=== PATIENT | female | born 1975 | race Caucasian/White ===

== ENCOUNTER 2019-07-25 15:36 | Emergency (ER) | payer SELFPAY ==
[~2019-07-25] VITALS: Ht 160 cm; Wt 83.9 kg
[2019-07-25 15:36] VITALS: BP 191/133
[~2019-07-25 15:36] MED LIST: BENA20TA10; DULO60EC; HYDR200T5
--- NOTE | 2019-07-25 15:42 | NUR ---
pt biba c/o right side flank painx yesterday. pt states she took motrin this morning and used a heat pad it allevated it a little but pain came back worse. no obvious injury noted. denies any hematuria or dyuria. denies any fever,n,v,d. denies any truama or injuy or falls. vss. rates pain 10/10. pt states movement makes it worse. received report from [facility] right of way worker. brigettea. pmh: htn, lupus.
--- NOTE | 2019-07-25 15:42 | NUR ---
PT PLACED IN BED 4 BY EMS.
[2019-07-25] MEDS ORDERED: KETOROLAC 30 MG/ML VIAL IVP ONE (16:10)
[2019-07-25 16:35] LABS: BASOPHILS # (AUTO) 0.1 K/uL (0.00-0.22); BASOPHILS % (AUTO) 0.6 % (0.0-2.0); EOSINOPHILS # (AUTO) 0.1 K/uL (0-0.4); HEMATOCRIT 40.3 % (36-48); HEMOGLOBIN 13.5 g/dL (12.0-16.0); LYMPHOCYTES # (AUTO) 0.5 K/uL (2.5-16.5); MEAN CORPUSCULAR HEMOGLOBIN 31 pg (27-31); MEAN CORPUSCULAR HGB CONC 34 g/dL (33-37); MEAN CORPUSCULAR VOLUME 91.8 fL (80-94); MONOCYTES # (AUTO) 0.6 K/uL (0.8-1.0); NEUTROPHILS # (AUTO) 7.7 K/uL (1.8-7.7); NEUTROPHILS % (AUTO) 85.4 % (42.2-75.2); PLATELET COUNT (AUTO) 267 K/uL (140-450); RED CELL DISTRIBUTION WIDTH 12.9 % (11.6-13.7)
[2019-07-25] MEDS ORDERED: MORPHINE SULFATE 4 MG/ML SYR IVP ONE (16:55)
[2019-07-25] MEDS ORDERED: ONDANSETRON 4 MG/2 ML VIAL IVP ONE (16:55)
[2019-07-25 17:38] LABS: ANION GAP 13.8 (8-16); POTASSIUM 3.8 mmol/L (3.5-5.1)
[2019-07-25 17:39] LABS: ALBUMIN 3.3 g/dL (3.4-5.0); CREATININE 0.8 mg/dL (0.6-1.3); TOTAL BILIRUBIN 0.3 mg/dL (0.0-1.0)
[2019-07-25 18:23] LABS: APPEARANCE,URINE CLEAR (CLEAR); BILIRUBIN,URINE NEGATIVE (NEGATIVE); BLOOD, URINE NEGATIVE (NEGATIVE); COLOR,URINE ORANGE (YELLOW); LEUKOCYTE ESTERASE ,URINE NEGATIVE (NEGATIVE); NITRITE, URINE NEGATIVE (NEGATIVE); PH,URINE 5.5 (5.0-9.0); UGLUCOSE NEGATIVE (NEGATIVE)
[2019-07-25 19:26] VITALS: BP 144/89
--- NOTE | 2019-07-25 19:27 | NUR ---
Patient discharged with v/s stable. Written and verbal after care instructions given and explained. Patient alert, oriented and verbalized understanding of instructions. Wheel Chair Assisted with by caregiver. All questions addressed prior to discharge. ID band removed. Patient advised to follow up with PMD. Rx of NORCO, AND NAPROSYN given. Patient educated on indication of medication including possible reaction and side effects. Opportunity to ask questions provided and answered.
== END 2019-07-25 19:27 | disposition home or self-care (01) ==
LOC: MED 15:36
DX: M53.3 Sacrococcygeal disorders, not elsewhere classified (principal); N83.201 Unspecified ovarian cyst, right side; I72.2 Aneurysm of renal artery; I10 Essential (primary) hypertension; Z79.899 Other long term (current) drug therapy
CPT/HCPCS: 36415; 74176; 80053; 81003; 81025; 83690; 85025; 96374; 96375; 99284; J1885; J2270; J2405

== ENCOUNTER 2019-09-11 14:52 | Emergency (ER) | payer BC ==
[~2019-09-11] VITALS: Ht 157.5 cm; Wt 87.1 kg
[2019-09-11 14:56] VITALS: BP 159/104
--- NOTE | 2019-09-11 15:04 | NUR ---
PT TO BED 7 WITH STEADY GAIT
--- NOTE | 2019-09-11 15:10 | NUR ---
C/O H/A AND L SIDED FACIAL NUMBNESS X 2 DAYS. UNEQUAL SMILE. SPEECH CLEAR, EQUAL GAIT TEARFUL AND BLURRY VISION X TODAY. NECK PAIN X YESTERDAY. PMH- LUPUS, HTN, KIDNEY STONES, R OVARIAN CYST, RENAL ANEURYSM
[2019-09-11] MEDS ORDERED: ACETAMINOPHEN 325 MG TAB PO ONE (15:30)
--- NOTE | 2019-09-11 15:58 | NUR ---
PT TAKEN OFF THE UNIT VIA WHEEL CHAIR FOR CT
--- NOTE | 2019-09-11 16:26 | NUR ---
PT BACK FROM CT SCAN
--- NOTE | 2019-09-11 16:52 | NUR ---
PT LEAVES ON PRIVATE RESIDENCE
--- NOTE | 2019-09-11 17:30 | NUR ---
Patient discharged with v/s stable. Written and verbal after care instructions given and explained. Patient alert, oriented and verbalized understanding of instructions. Ambulatory with steady gait. All questions addressed prior to discharge. ID band removed. Patient advised to follow up with PMD. Rx of ACYCLOVIR/LACRI-LUBE/PREDNISONE given. Patient educated on indication of medication including possible reaction and side effects. Opportunity to ask questions provided and answered.
[2019-09-11 17:33] VITALS: BP 140/78
== END 2019-09-11 17:30 | disposition home or self-care (01) ==
LOC: MED 14:52
DX: G51.0 Bell's palsy (principal); I10 Essential (primary) hypertension; I72.2 Aneurysm of renal artery; Z79.899 Other long term (current) drug therapy
CPT/HCPCS: 70450; 99284

== ENCOUNTER 2019-09-16 11:24 | Emergency (ER) | payer BC ==
[~2019-09-16] VITALS: Ht 157.5 cm; Wt 87.1 kg
[2019-09-16 11:42] VITALS: BP 155/102
[2019-09-16] MEDS ORDERED: METO100T14 PO (11:48)
--- NOTE | 2019-09-16 11:49 | NUR ---
PT AMBULATED TO BED 06.
[2019-09-16] MEDS ORDERED: BENA40TA PO (11:52)
[2019-09-16] MEDS ORDERED: CHOL100037 PO (11:52)
[2019-09-16] MEDS ORDERED: HYDR200T5 PO (11:52)
[2019-09-16] MEDS ORDERED: DULO60EC PO (11:52)
[2019-09-16] MEDS ORDERED: PRED20TA5 PO (11:54)
[2019-09-16] MEDS ORDERED: BIOT10008 PO (11:54)
[2019-09-16] MEDS ORDERED: ACYC800T1 PO (11:54)
[2019-09-16] MEDS ORDERED: [UNRECOGNIZED DRUG - CODE] PO (11:54)
--- NOTE | 2019-09-16 12:16 | NUR ---
Dr. Lewis is evaluating the patient at bedside.
--- NOTE | 2019-09-16 12:20 | NUR ---
43 Y/O F C/C LEFT SIDED NUMBNESS. PER PT GOT DX WITH BELLS PALLSY ON WEDNESDAY. PT CONCERNED IF CAN GO TO WORK. NEURO WDL. PT NKA. HX BELLS PALLYS. RX PREDNISONE. NO N/V/D. SIDE RAIL X1. FAMILY AT BEDSIDE.
[2019-09-16 13:06] LABS: APPEARANCE,URINE CLEAR (CLEAR); BILIRUBIN,URINE NEGATIVE (NEGATIVE); BLOOD, URINE NEGATIVE (NEGATIVE); COLOR,URINE YELLOW (YELLOW); LEUKOCYTE ESTERASE ,URINE NEGATIVE (NEGATIVE); NITRITE, URINE NEGATIVE (NEGATIVE); UGLUCOSE NEGATIVE (NEGATIVE)
--- NOTE | 2019-09-16 13:23 | NUR ---
REPORT GIVEN TO WALDEMAR MENENDEZ FOR CONTINUITY OF CARE
[2019-09-16 13:30] VITALS: BP 135/79
--- NOTE | 2019-09-16 13:32 | NUR ---
Patient discharged with v/s stable. Written and verbal after care instructions given and explained. Patient verbalized understanding. Ambulatory with steady gait. All questions addressed prior to discharge. Advised to follow up with PMD.
== END 2019-09-16 13:32 | disposition home or self-care (01) ==
LOC: MED 11:24
DX: G51.0 Bell's palsy (principal); I10 Essential (primary) hypertension; Z79.899 Other long term (current) drug therapy
CPT/HCPCS: 81003; 99283

== ENCOUNTER 2020-07-27 14:05 | Emergency (ER) | payer BC ==
[~2020-07-27] VITALS: Ht 160 cm; Wt 89.9 kg
[~2020-07-27 14:05] MED LIST changes: +ACYC800T1 PO; -BENA20TA10; +BENA40TA PO; +BIOT10008 PO; +CHOL100037 PO; -DULO60EC; +DULO60EC PO; -HYDR200T5; +HYDR200T5 PO; +METO100T14 PO; +PRED20TA5 PO; +[UNRECOGNIZED DRUG - CODE] PO
[2020-07-27 14:10] VITALS: BP 148/78
--- NOTE | 2020-07-27 14:15 | NUR ---
AMBULATED TO BED 5
--- NOTE | 2020-07-27 14:17 | NUR ---
44/F BIB SELF C/O RIGHT BACK PAIN X YESTERDAY. DENIES TRAUMA.MED HX: LUPUS, SJOGRENS, HTN.DENIES N/V/D; SKIN IS PINK/WARM/DRY; AAOX4 WITH EVEN AND STEADY GAIT; LUNGS CLEAR BL; HR EVEN AND REGULAR; PT DENIES ANY FEVER, CP, SOB, OR COUGH AT THIS TIME; PATIENT STATES PAIN OF 8/10 AT THIS TIME.PATIENT POSITIONED FOR COMFORT; HOB ELEVATED; BEDRAILS UP X1; BED DOWN. ER MD MADE AWARE OF PT STATUS.
[2020-07-27] MEDS ORDERED: KETOROLAC 60 MG/2 ML VIAL IM ONE (14:30)
--- NOTE | 2020-07-27 14:59 | NUR ---
Patient being evaluated by DR PRATT AT BEDSIDE at bedside.
[2020-07-27 15:41] VITALS: BP 132/65
--- NOTE | 2020-07-27 15:41 | NUR ---
Patient discharged with v/s stable. Written and verbal after care instructions given and explained. Patient alert, oriented and verbalized understanding of instructions. Ambulatory with steady gait. All questions addressed prior to discharge. ID band removed. Patient advised to follow up with PMD. Rx of MOTRIN & NORCO given. Patient educated on indication of medication including possible reaction and side effects. Opportunity to ask questions provided and answered.
== END 2020-07-27 15:41 | disposition home or self-care (01) ==
LOC: MED 14:05
DX: M54.5 Low back pain (principal); I10 Essential (primary) hypertension; M35.00 Sjogren syndrome, unspecified; Z90.711 Acquired absence of uterus with remaining cervical stump; Z79.899 Other long term (current) drug therapy
CPT/HCPCS: 81002; 96372; 99283; J1885

== ENCOUNTER 2020-08-31 16:55 | Emergency (ER) | payer BC ==
[~2020-08-31] VITALS: Ht 160 cm; Wt 89.8 kg
[2020-08-31 17:25] VITALS: BP 144/83
--- NOTE | 2020-08-31 18:30 | NUR ---
Patient discharged with v/s stable. Written and verbal after care instructions given and explained. Patient alert, oriented and verbalized understanding of instructions. Ambulatory with steady gait. All questions addressed prior to discharge. ID band removed. Patient advised to follow up with PMD. Rx of Clotrimazole given. Patient educated on indication of medication including possible reaction and side effects. Opportunity to ask questions provided and answered. Addendum: 08/31/20 at 1830 by [facility] No nursing care provided in our ER.
== END 2020-08-31 18:30 | disposition home or self-care (01) ==
LOC: MED 16:55
DX: L30.4 Erythema intertrigo (principal); I10 Essential (primary) hypertension; Z79.899 Other long term (current) drug therapy
CPT/HCPCS: 99282

== ENCOUNTER 2021-02-07 20:18 | Emergency (ER) | payer BC ==
[~2021-02-07] VITALS: Ht 160 cm; Wt 86.2 kg
[2021-02-07 20:24] VITALS: BP 161/95
[2021-02-07] MEDS: NACL 0.9% 1,000 ML IV ONE (20:57)
[2021-02-07] MEDS: ONDANSETRON 4 MG ODT PO ONE (20:57)
[2021-02-07] MEDS: METOCLOPRAMIDE 10 MG/2 ML INJ VIAL IVP ONE (20:58)
[2021-02-07 21:03] LABS: BASOPHILS # (AUTO) 0.1 K/uL (0.00-0.22); BASOPHILS % (AUTO) 0.5 % (0.0-2.0); EOSINOPHILS # (AUTO) 0.2 K/uL (0-0.4); HEMATOCRIT 40.5 % (36-48); HEMOGLOBIN 13.7 g/dL (12.0-16.0); LYMPHOCYTES # (AUTO) 2.6 K/uL (2.5-16.5); LYMPHOCYTES % (AUTO) 22.3 % (20.5-51.1); MEAN CORPUSCULAR HEMOGLOBIN 31 pg (27-31); MEAN CORPUSCULAR HGB CONC 34 g/dL (33-37); MEAN CORPUSCULAR VOLUME 90.5 fL (80-94); MONOCYTES # (AUTO) 0.8 K/uL (0.8-1.0); MONOCYTES % (AUTO) 6.6 % (1.7-9.3); NEUTROPHILS # (AUTO) 8.1 K/uL (1.8-7.7); NEUTROPHILS % (AUTO) 68.6 % (42.2-75.2); PLATELET COUNT (AUTO) 310 K/uL (140-450); RED BLOOD CELL COUNT(AUTO) 4.48 MIL/uL (4.20-5.40); RED CELL DISTRIBUTION WIDTH 12.9 % (11.6-13.7); WHITE BLOOD COUNT (AUTO) 11.8 K/uL (4.8-10.8)
[2021-02-07 21:57] LABS: ALBUMIN 3.6 g/dL (3.4-5.0); ANION GAP 14.5 (8-16); CARBON DIOXIDE 25.3 mmol/L (21-32); CREATININE 0.9 mg/dL (0.6-1.3); TOTAL BILIRUBIN 0.3 mg/dL (0.0-1.0)
[2021-02-07 22:01] LABS: POTASSIUM 2.8 mmol/L (3.5-5.1)
[2021-02-07] MEDS: POTASSIUM CHLORIDE 10 MEQ TABER PO ONE (22:39)
[2021-02-07] MEDS ORDERED: ONDA4TAB PO (22:50)
[2021-02-07 23:09] VITALS: BP 129/80
== END 2021-02-07 23:09 | disposition home or self-care (01) ==
LOC: MED 20:18
DX: R11.2 Nausea with vomiting, unspecified (principal); E87.6 Hypokalemia; I10 Essential (primary) hypertension; Z79.899 Other long term (current) drug therapy
CPT/HCPCS: 36415; 80053; 83690; 85025; 96361; 96374; 99283; J2765; J7030; Q0162

== ENCOUNTER 2021-03-19 00:34 | Emergency (ER) | payer BC ==
[~2021-03-19] VITALS: Ht 160 cm; Wt 86.2 kg
[~2021-03-19 00:34] MED LIST changes: +ACYC-279 PO; -ACYC800T1 PO; +ONDA4TAB PO
[2021-03-19 00:40] VITALS: BP 150/90
--- NOTE | 2021-03-19 00:43 | NUR ---
TO LOBBY A/W BED AMBULATORY
--- NOTE | 2021-03-19 01:16 | NUR ---
PT AMBULATORY TO BED #9
--- NOTE | 2021-03-19 01:17 | NUR ---
BIB home c/o headache started before going to bed. Patient reports "felt a jolt in my head." Denies N/V. +Diarrhea started at 2100 today. Took motrin at 2345 but feel unrelief. 8/10 squeezing pain around the temples and the back of the head. AAOx4. VSS. PMH: HTN, Sjorgens, partial hysterectomy NKA
--- NOTE | 2021-03-19 01:22 | NUR ---
patient ambulated to the bathroom for urine collection
--- NOTE | 2021-03-19 01:49 | NUR ---
patient to CT via w/c
--- NOTE | 2021-03-19 01:54 | NUR ---
PT RETURN FROM CT
[2021-03-19] MEDS ORDERED: KETOROLAC 30 MG/ML VIAL IM ONE (02:50)
[2021-03-19] MEDS ORDERED: diphenhydrAMINE 50 MG/ML VIAL IM ONE (02:50)
[2021-03-19] MEDS ORDERED: PROCHLORPERAZINE 10 MG/2 ML VIAL IM ONE (02:50)
[2021-03-19] MEDS ORDERED: CLON0.1T15 PO (02:54)
[2021-03-19 03:34] VITALS: BP 153/89
--- NOTE | 2021-03-19 03:34 | NUR ---
Patient discharged with v/s stable. Written and verbal after care instructions given and explained. Patient alert, oriented and verbalized understanding of instructions. Ambulatory with steady gait. All questions addressed prior to discharge. ID band removed. Patient advised to follow up with PMD. Rx of Clonidine Hcl given. Patient educated on indication of medication including possible reaction and side effects. Opportunity to ask questions provided and answered.
== END 2021-03-19 03:34 | disposition home or self-care (01) ==
LOC: MED 00:34
DX: R51.9 Headache, unspecified (principal); I10 Essential (primary) hypertension; Z79.899 Other long term (current) drug therapy
CPT/HCPCS: 70450; 96372; 99285; J0780; J1200; J1885

== ENCOUNTER 2021-11-28 19:18 | Emergency (ER) | payer BC ==
[~2021-11-28] VITALS: Ht 160 cm; Wt 86.2 kg
[~2021-11-28 19:18] MED LIST changes: +CLON0.1T15 PO; -DULO60EC PO; +DULO60EC1 PO
[2021-11-28 19:44] VITALS: BP 145/87
--- NOTE | 2021-11-29 00:22 | NUR ---
NO RESPONSE, CALLED PATIENT NO RESPONSE.
--- NOTE | 2021-11-29 00:36 | NUR ---
NO RESPONSE, NOT IN LOBBY OR PARKING LOT
--- NOTE | 2021-11-29 00:58 | NUR ---
PATIENT LEFT WITHOUT BEING SEEN BY DR. BENÍTEZ. NO FURTHER CARE PROVIDED FOR PATIENT.
== END 2021-11-29 00:58 | disposition left against medical advice (07) ==
LOC: MED 19:18
DX: H92.03 Otalgia, bilateral (principal); Z53.21 Procedure and treatment not carried out due to patient leaving prior to being seen by health care provider

== ENCOUNTER 2022-12-01 01:21 | Emergency (ER) | payer BC ==
[~2022-12-01] VITALS: Ht 160 cm; Wt 91.2 kg
[2022-12-01 01:24] VITALS: BP 160/90
--- NOTE | 2022-12-01 01:29 | NUR ---
pt to lobby to a/w bed
--- NOTE | 2022-12-01 03:49 | NUR ---
pt to bed #5
--- NOTE | 2022-12-01 03:57 | NUR ---
pt rc'd in bed 5, pt c/o headache for 3 days with nausea. motrin 800mg x20 mins. medhx- htn, sjoren's nka
[2022-12-01] MEDS ORDERED: diphenhydrAMINE 50 MG/ML VIAL IVP ONE (04:10)
[2022-12-01] MEDS ORDERED: PROCHLORPERAZINE 10 MG/2 ML VIAL IVP ONE (04:10)
[2022-12-01] MEDS ORDERED: KETOROLAC 15 MG/ML VIAL IVP ONE (04:10)
[2022-12-01 06:24] VITALS: BP 138/62
== END 2022-12-01 06:24 | disposition home or self-care (01) ==
LOC: MED 01:21
DX: R51.9 Headache, unspecified (principal); I10 Essential (primary) hypertension; Z79.899 Other long term (current) drug therapy; Z90.710 Acquired absence of both cervix and uterus; Z98.890 Other specified postprocedural states
CPT/HCPCS: 70450; 96374; 96375; 99285; J0780; J1200; J1885